=== PATIENT | male | born 1960 | race Caucasian/White ===

== ENCOUNTER → 2024-06-14 13:34 | Outpatient (REF) | payer OTHER, SELFPAY | LOC: RAD 13:34 | PROVIDERS: ATTENDING PHYSICIAN Physician Assistant Surgical | DX: M79.661 Pain in right lower leg (principal) | CPT/HCPCS: 93971 ==

== ENCOUNTER 2024-06-14 22:03 | Inpatient (IN) | payer OTHER, SELFPAY ==
[2024-06-14] VITALS (10 sets, daily range): BP systolic 136–183; BP diastolic 88–157; BMI 27.4; BMI 30.1
--- NOTE | 2024-06-14 15:07 | ED.GENMED ---
ED Provider Triage
<Brain Gillespie PA-C - Last Filed: 06/14/24 15:11>
-
Patient seen by provider in Triage?: Seen in Triage
Attestation: A medical screening examination has been initiated by a qualified medical provider. Based on the assessment performed at this time, it has been determined that an emergent medical condition may exist and the patient has been informed
that further medical evaluation and possible additional diagnostic testing may be needed.
HPI: Patient sent to the emergency department for admission due to extensive DVT to the right lower extremity. Patient with known tibial plateau fracture. Also history of factor V. Labs initiated. Patient states he 'always has chest pain' CTA of
the chest ordered for PE rule out given known DVT. patient will likely need admission for heparin drip and further evaluation.
GENERAL: Alert , in no apparent distress
EYE: No visual abnormalities.
NECK: Trachea midline
ENT: No visible abnormalities.
LUNGS: No acute respiratory distress
NEUROLOGICAL: Alert and oriented
SKIN: Skin intact. No visible changes.
MUSCULOSKELETAL: Moving extremities normally
PSYCH: Normal and appropriate interaction.
This is a medical evaluation conducted in person to initiate diagnostic evaluation and provide initial therapeutics. Please see further documentation by the treating clinician.
History of Present Illness
<Brain Gillespie PA-C - Last Filed: 06/14/24 15:11>
General
Chief Complaint: DVT/Possible Blood Clot
Time Seen by Provider: 06/14/24 16:12
<Kathy Garcia NP - Last Filed: 06/16/24 11:02>
General
Source: patient
Exam Limitations: none
Nursing documentation reviewed up to this point in time: agreed with
History of Present Illness
History of Present Illness:
63-year-old male with tibial plateau fracture on 05/17/24 from skiing accident. Has been wearing long leg brace. Three days ago noted swelling in his R foot and pain in back of his leg. Had out pt US today and he was called and told to come here for
DVT.
He has chronic chest pain, with multiple cardiac workups and his rn documentation told him 'well we can't find anything and you're not yet' so he lives with chronic chest pain, he has had no chest pains other than his typical chronic chest pain
He has some SOB going up and down steps he states due to the fact that it is hard for him to maneuver steps with his brace and crutches. No SOB at rest.
Denies fever/chills.
Past History
<Kathy Garcia, COAT AGENT - Last Filed: 06/16/24 11:02>
Past History
ED Past Medical History: None
ED Past Surgical History: None
Social History
Tobacco: Non-smoker
Personal:
Living: with family
Employment: Employed
Review of Systems
<Kathy Garcia, COAT AGENT - Last Filed: 06/16/24 11:02>
Review of Systems
Allergies reviewed?: Yes
All Other Systems: ROS reviewed and negative except as documented in HPI and ROS
Constitutional: Denies fever
Respiratory: Denies cough, hemoptysis or trouble breathing
Cardiac: Reports chest pain (Similar to his chronic chest pain); Denies diaphoresis, palpitations or syncope
ABD/GI: Denies abdominal pain
Musculoskeletal: Reports edema (swelling R foot and lower leg) and other (Wearing a brace on the right leg for a tibial plateau fracture)
Neurological: Reports no symptoms
Phy Exam
<Kathy Garcia, COAT AGENT - Last Filed: 06/16/24 11:02>
Physical Exam
Physical Exam:
GENERAL: No acute distress. A&Ox3.
CONSTITUTIONAL: Afebrile.
EYES: clear, conjunctivae normal
ENMT: moist mucus membranes
RESPIRATORY: Regular respirations, nonlabored, lungs clear.
CARDIOVASCULAR: Regular rate and rhythm, no murmurs, no rubs.
GI: Soft, nontender
MUSCULOSKELETAL: Long-leg brace on right leg. Right lower leg and foot are +1 swollen, pedal pulse 2/5, foot is warm and pink. Brisk capillary refill. Moves with ease. Well perfused.
SKIN: Warm, dry, pink
PSYCH: Normal mood and affect. Well kept, interactive and appropriate
NEUROLOGIC: Awake, alert and oriented. No focal neurological deficits
Course
<Brain Gillespie PA-C - Last Filed: 06/14/24 15:11>
Orders/Labs/Results
Orders:
Orders
06/14/24 Breakfast
Cholesterol Lowering
At Your Request: Full Participation
Does patient need a safe tray?: No
Cholesterol Lowering: Sodium, 2 Gram
06/14/24 15:10
CT Chest PE Study Urgent
Comment:
Reason For Exam: known DVT, chest pain
06/14/24 15:18
Electrocardiogram (*1) Urgent
Reason for Study: Chest Pain
EKG- Treatment ONCE
06/14/24 15:23
Basic Metabolic Panel Urgent
Complete Blood Count/With Diff Urgent
NT-proBNP Urgent
PTT Urgent
Prothrombin Time Urgent
Troponin I Urgent
06/14/24 16:25
Apixaban [Eliquis] 10 mg PO NOW STA
06/14/24 20:01
Heparin 7,900 units IV NOW STA
06/14/24 20:[address] Non Medication Order As Directed
Physician Order: PTT 6 hours after initial start of Heparin infusion
Above order entered?: Yes
06/14/24 20:15
Heparin 14912 Units/250 ml 25,000 units in 250 ml IV PER PROTOCOL
Weight to be used for heparin protocol in kilograms (kg):: 99.3
Protocol:: DVT/PE
PTT Goal Range to be used:: PTT 73 to 111 seconds
Order type:: Initial
INITIAL Infusion Dose (UNITS/KG/hr) & then follow protocol:: 18 units/kg/hr
Infusion Dose in UNITS/hr & then follow protocol (UNITS/hr):: 1,800
INFUSION RATE in mL/hr & then follow protocol (mL/hr):: 18
For DVT/PE algorithm, re-bolus for low PTT?: Yes
PTT less than or equal to 64 seconds:: Re-bolus 80 units/kg (max 10,000units). Increase by 400 units/hr
(+ 4mL/hr)
PTT 64.1 to 72.9 seconds:: Re-bolus 40 units/kg (max 5,000 units). Increase by 200 units/hr
(+ 2mL/hr)
PTT 73 to 111 seconds:: Target Range. No change in rate.
PTT 111.1 to 130.9 seconds:: Decrease rate by 200 units/hr (- 2 mL/hr)
PTT 131 to 199.9 seconds:: HOLD for 1 hr. Then decrease by 300 units/hr (- 3mL/hr)
PTT greater than or equal to 200 seconds:: HOLD for 2 hrs & Notify Provider. Then decrease by 400 units/hr
(- 4mL/hr)
Lab follow-up:: Each change, PTT q6h until 2 consecutive are therapeutic. Then
PTT daily.
06/14/24 20:27
Heparin 7,900 units IV PRN PRN
06/14/24 20:28
Heparin 4,000 units IV PRN PRN
06/14/24 20:51
Admit/Transfer Patient As Directed
Co-Sign Provider:
Level of Care: Inpatient admission
Assign to:: Telemetry
Physician / Group: facundo
Diagnosis: PE
Reason for Telemetry: Other
Other Reason for Telemetry: PE
Date to Stop Telemetry: 06/16/24
Time to Stop Telemetry: 11:00
Reason for Hospitalization: PE
DVT
Expected length of stay greater than two midnights?: Yes
ELOS- Estimated Length of Stay in days: 3
I certify the patient meets the requirements for IP care: Yes
PRN Pain Medication Management As Directed
May give lesser potent ordered pain med per pt: Yes
preference::
Protocol:: Medication orders for pain may be administered in a
manner that supports deferring to patient preference
when the pt is:
- Requesting an ordered lesser potent pain medication.
Least to most potent pain medications are defined
as: acetaminophen < NSAID < tramadol < opioids
(morphine, oxycodone, hydromorphone).
- Requesting a lesser dose of the same medication IF
ORDERED.
- Requesting a less intrusive route of administration
if both routes are prescribed by the provider (PO <
IV).
06/14/24 20:52
Code Status As Directed
Resuscitation Status: Full Code
06/14/24 22:00
Flush (0.9% Sodium Chloride) [Flush (Nss)] See Dose Instructions IV PER PROTOCOL
06/14/24 22:59
0.9% Sodium Chloride [Nss (Preservative Free)] See Protocol IV PRN PRN
Acetaminophen [Tylenol] 650 mg PO Q4HPRN PRN
FOLic ACID [Folvite] 1 mg 0.9% Sodium Chloride 50 ml [Nss] 50 ml IV DAILYPRN
Lorazepam [Ativan] 1 mg IV Q1HPRN PRN
Lorazepam [Ativan] 1 mg PO Q2HPRN PRN
Lorazepam [Ativan] 2 mg IV Q1HPRN PRN
Oxycodone/Acetaminophen [Percocet 5/325] 1 tablet PO Q4HPRN PRN
06/14/24 22:59
Case Management Consult Once
Case Management Consult: Other
Comment: Substance abuse counseling
DIETARY CONSULT Routine
Reason for Consult: Nutrition support, possible refeeding guidelines
Urine Drug Abuse Screen Routine
Date Specimen was Collected: 06/15/24
Time Specimen was Collected: 07:31
Heparin Protocol- PTT Orders As Directed
PTT per Heparin protocol: -Obtain CBC and baseline PTT - if not already collected.
-Obtain PTT 6 hours from start of infusion. Then, every 6 hours until 2 consecutive
PTT's are therapeutic. Then, PTT Daily.
-With each rate change, obtain PTT every 6 hours until 2 consecutive PTT's are
therapeutic. Then, PTT Daily.
Activity As Directed
Activity Level: As Tolerated
Bladder Scan As Directed
Follow Bladder Retention/Intermittent Cath Algorithm?: Yes
Frequency: Per Retention Algorithm
Comment: as per intermittent urinary catheter algorithm
Bladder Scan As Directed
Follow Bladder Retention/Intermittent Cath Algorithm?: Yes
PRN if no void in __ hours: 6
Frequency: Per Retention Algorithm
If Bladder Scan Result >: 400
then:: Straight cath
Intake/ Output As Directed
Frequency: Per unit guidelines
MSAS SCORE As Directed
MSAS Score 0-4: Repeat MSAS every 2 hours until 0-4 for three consecutive assessments, then every 4 hours x 48
hours.
MSAS Score 5-7: For MILD withdrawl symptoms. Repeat MSAS and RASS every 2 hours
MSAS Score 8-11: For MODERATE withdrawal symptoms. Repeat MSAS and RASS every 1 hour. Consider ICU or IMU
level of care.
MSAS Score > 11: For SEVERE withdrawal symptoms. Repeat MSAS and RASS every 1 hour. Notify provider, consider
ICU level of care.
MSAS Additional Instructions: If no improvement or no decrease in score from severe to moderate within 12
hours, consult psychiatry
MSAS Notify Provider: Notify provider if patient requires more than 10 mg of Lorazepam in eight hour period.
Notify MD As Directed
Notify physician if: PTT is greater than or equal to 200.
Straight Cath As Directed
Frequency: Per Retention Algorithm
Additional Instructions: as per intermittent urinary catheter algorithm
Straight Cath As Directed
Frequency: Per Retention Algorithm
Additional Instructions: straight cath as needed per acute urinary retention algorithm for 24 hrs
Additional Instructions: for bladder scan greater than 400 mL
Vital Signs As Directed
Frequency: Per unit guidelines
Pt Eval And Treat Routine
Activity Level: As Tolerated
06/14/24 23:23
Alcohol Urgent
B-Hydroxybutyrate Urgent
GGTP Urgent
Magnesium Urgent
Phosphorus Urgent
06/15/24 03:12
Complete Blood Count/No Diff IN AM
PTT Urgent
Comment: 6 hour Heparin PTT
06/15/24 08:00
Atorvastatin [Lipitor] 10 mg PO DAILY
FOLic ACID [Folvite] 1 mg PO DAILY
Pantoprazole [Protonix] 40 mg PO DAILY
Thiamine Injection 200 mg IV Q12
06/16/24 11:00
DC Protocol for Telemetry ONCE
06/18/24 08:00
Thiamine HCl [Vitamin B1] 100 mg PO BID
Abnormal Lab Results
06/14/24
15:23
MCH 31.8 H pg
(27.0-31.0)
Immature Gran % 0.6 H %
(0-0.5)
Monocytes % 9.6 H %
(1.7-9.3)
Eosinophils % 7.5 H %
(0-6)
Creatinine 0.5 L mg/dL
(0.7-1.3)
Glucose 102 H mg/dl
(70-99)
06/14/24 15:23
06/14/24 15:23
Vital Signs
Initial and Last Documented VS:
Initial Vital Signs
Temp Pulse Resp BP Pulse Ox
98.4 F 70 18 147/106 96
06/14/24 15:10 06/14/24 15:10 06/14/24 15:10 06/14/24 15:10 06/14/24 15:10
Last Documented Vital Signs
Temp Pulse Resp BP Pulse Ox
98.2 F 78 20 152/85 94
06/15/24 11:52 06/15/24 11:43 06/15/24 11:43 06/15/24 11:43 06/15/24 12:00
<Kathy Garcia, GUILLERMINA - Last Filed: 06/16/24 11:02>
Orders/Labs/Results
Orders:
Orders
06/14/24 Breakfast
Cholesterol Lowering
At Your Request: Full Participation
Does patient need a safe tray?: No
Cholesterol Lowering: Sodium, 2 Gram
06/14/24 15:10
CT Chest PE Study Urgent
Comment:
Reason For Exam: known DVT, chest pain
06/14/24 15:18
Electrocardiogram (*1) Urgent
Reason for Study: Chest Pain
EKG- Treatment ONCE
06/14/24 15:23
Basic Metabolic Panel Urgent
Complete Blood Count/With Diff Urgent
NT-proBNP Urgent
PTT Urgent
Prothrombin Time Urgent
Troponin I Urgent
06/14/24 16:25
Apixaban [Eliquis] 10 mg PO NOW STA
06/14/24 20:01
Heparin 7,900 units IV NOW STA
06/14/24 20:[address] Non Medication Order As Directed
Physician Order: PTT 6 hours after initial start of Heparin infusion
Above order entered?: Yes
06/14/24 20:15
Heparin 08785 Units/250 ml 25,000 units in 250 ml IV PER PROTOCOL
Weight to be used for heparin protocol in kilograms (kg):: 99.3
Protocol:: DVT/PE
PTT Goal Range to be used:: PTT 73 to 111 seconds
Order type:: Initial
INITIAL Infusion Dose (UNITS/KG/hr) & then follow protocol:: 18 units/kg/hr
Infusion Dose in UNITS/hr & then follow protocol (UNITS/hr):: 1,800
INFUSION RATE in mL/hr & then follow protocol (mL/hr):: 18
For DVT/PE algorithm, re-bolus for low PTT?: Yes
PTT less than or equal to 64 seconds:: Re-bolus 80 units/kg (max 10,000units). Increase by 400 units/hr
(+ 4mL/hr)
PTT 64.1 to 72.9 seconds:: Re-bolus 40 units/kg (max 5,000 units). Increase by 200 units/hr
(+ 2mL/hr)
PTT 73 to 111 seconds:: Target Range. No change in rate.
PTT 111.1 to 130.9 seconds:: Decrease rate by 200 units/hr (- 2 mL/hr)
PTT 131 to 199.9 seconds:: HOLD for 1 hr. Then decrease by 300 units/hr (- 3mL/hr)
PTT greater than or equal to 200 seconds:: HOLD for 2 hrs & Notify Provider. Then decrease by 400 units/hr
(- 4mL/hr)
Lab follow-up:: Each change, PTT q6h until 2 consecutive are therapeutic. Then
PTT daily.
06/14/24 20:27
Heparin 7,900 units IV PRN PRN
06/14/24 20:28
Heparin 4,000 units IV PRN PRN
06/14/24 20:51
Admit/Transfer Patient As Directed
Co-Sign Provider:
Level of Care: Inpatient admission
Assign to:: Telemetry
Physician / Group: facundo
Diagnosis: PE
Reason for Telemetry: Other
Other Reason for Telemetry: PE
Date to Stop Telemetry: 06/16/24
Time to Stop Telemetry: 11:00
Reason for Hospitalization: PE
DVT
Expected length of stay greater than two midnights?: Yes
ELOS- Estimated Length of Stay in days: 3
I certify the patient meets the requirements for IP care: Yes
PRN Pain Medication Management As Directed
May give lesser potent ordered pain med per pt: Yes
preference::
Protocol:: Medication orders for pain may be administered in a
manner that supports deferring to patient preference
when the pt is:
- Requesting an ordered lesser potent pain medication.
Least to most potent pain medications are defined
as: acetaminophen < NSAID < tramadol < opioids
(morphine, oxycodone, hydromorphone).
- Requesting a lesser dose of the same medication IF
ORDERED.
- Requesting a less intrusive route of administration
if both routes are prescribed by the provider (PO <
IV).
06/14/24 20:52
Code Status As Directed
Resuscitation Status: Full Code
06/14/24 22:00
Flush (0.9% Sodium Chloride) [Flush (Nss)] See Dose Instructions IV PER PROTOCOL
06/14/24 22:59
0.9% Sodium Chloride [Nss (Preservative Free)] See Protocol IV PRN PRN
Acetaminophen [Tylenol] 650 mg PO Q4HPRN PRN
FOLic ACID [Folvite] 1 mg 0.9% Sodium Chloride 50 ml [Nss] 50 ml IV DAILYPRN
Lorazepam [Ativan] 1 mg IV Q1HPRN PRN
Lorazepam [Ativan] 1 mg PO Q2HPRN PRN
Lorazepam [Ativan] 2 mg IV Q1HPRN PRN
Oxycodone/Acetaminophen [Percocet 5/325] 1 tablet PO Q4HPRN PRN
06/14/24 22:59
Case Management Consult Once
Case Management Consult: Other
Comment: Substance abuse counseling
DIETARY CONSULT Routine
Reason for Consult: Nutrition support, possible refeeding guidelines
Urine Drug Abuse Screen Routine
Date Specimen was Collected: 06/15/24
Time Specimen was Collected: 07:31
Heparin Protocol- PTT Orders As Directed
PTT per Heparin protocol: -Obtain CBC and baseline PTT - if not already collected.
-Obtain PTT 6 hours from start of infusion. Then, every 6 hours until 2 consecutive
PTT's are therapeutic. Then, PTT Daily.
-With each rate change, obtain PTT every 6 hours until 2 consecutive PTT's are
therapeutic. Then, PTT Daily.
Activity As Directed
Activity Level: As Tolerated
Bladder Scan As Directed
Follow Bladder Retention/Intermittent Cath Algorithm?: Yes
Frequency: Per Retention Algorithm
Comment: as per intermittent urinary catheter algorithm
Bladder Scan As Directed
Follow Bladder Retention/Intermittent Cath Algorithm?: Yes
PRN if no void in __ hours: 6
Frequency: Per Retention Algorithm
If Bladder Scan Result >: 400
then:: Straight cath
Intake/ Output As Directed
Frequency: Per unit guidelines
MSAS SCORE As Directed
MSAS Score 0-4: Repeat MSAS every 2 hours until 0-4 for three consecutive assessments, then every 4 hours x 48
hours.
MSAS Score 5-7: For MILD withdrawl symptoms. Repeat MSAS and RASS every 2 hours
MSAS Score 8-11: For MODERATE withdrawal symptoms. Repeat MSAS and RASS every 1 hour. Consider ICU or IMU
level of care.
MSAS Score > 11: For SEVERE withdrawal symptoms. Repeat MSAS and RASS every 1 hour. Notify provider, consider
ICU level of care.
MSAS Additional Instructions: If no improvement or no decrease in score from severe to moderate within 12
hours, consult psychiatry
MSAS Notify Provider: Notify provider if patient requires more than 10 mg of Lorazepam in eight hour period.
Notify MD As Directed
Notify physician if: PTT is greater than or equal to 200.
Straight Cath As Directed
Frequency: Per Retention Algorithm
Additional Instructions: as per intermittent urinary catheter algorithm
Straight Cath As Directed
Frequency: Per Retention Algorithm
Additional Instructions: straight cath as needed per acute urinary retention algorithm for 24 hrs
Additional Instructions: for bladder scan greater than 400 mL
Vital Signs As Directed
Frequency: Per unit guidelines
Pt Eval And Treat Routine
Activity Level: As Tolerated
06/14/24 23:23
Alcohol Urgent
B-Hydroxybutyrate Urgent
GGTP Urgent
Magnesium Urgent
Phosphorus Urgent
06/15/24 03:12
Complete Blood Count/No Diff IN AM
PTT Urgent
Comment: 6 hour Heparin PTT
06/15/24 08:00
Atorvastatin [Lipitor] 10 mg PO DAILY
FOLic ACID [Folvite] 1 mg PO DAILY
Pantoprazole [Protonix] 40 mg PO DAILY
Thiamine Injection 200 mg IV Q12
06/16/24 11:00
DC Protocol for Telemetry ONCE
06/18/24 08:00
Thiamine HCl [Vitamin B1] 100 mg PO BID
Abnormal Lab Results
06/14/24
15:23
MCH 31.8 H pg
(27.0-31.0)
Immature Gran % 0.6 H %
(0-0.5)
Monocytes % 9.6 H %
(1.7-9.3)
Eosinophils % 7.5 H %
(0-6)
Creatinine 0.5 L mg/dL
(0.7-1.3)
Glucose 102 H mg/dl
(70-99)
06/14/24 15:23
06/14/24 15:23
Vital Signs
Initial and Last Documented VS:
Initial Vital Signs
Temp Pulse Resp BP Pulse Ox
98.4 F 70 18 147/106 96
06/14/24 15:10 06/14/24 15:10 06/14/24 15:10 06/14/24 15:10 06/14/24 15:10
Last Documented Vital Signs
Temp Pulse Resp BP Pulse Ox
98.2 F 78 20 152/85 94
06/15/24 11:52 06/15/24 11:43 06/15/24 11:43 06/15/24 11:43 06/15/24 12:00
<Eugenio Agrawal, DO - Last Filed: 06/14/24 20:08>
Orders/Labs/Results
Orders:
Orders
06/14/24 Breakfast
Cholesterol Lowering
At Your Request: Full Participation
Does patient need a safe tray?: No
Cholesterol Lowering: Sodium, 2 Gram
06/14/24 15:10
CT Chest PE Study Urgent
Comment:
Reason For Exam: known DVT, chest pain
06/14/24 15:18
Electrocardiogram (*1) Urgent
Reason for Study: Chest Pain
EKG- Treatment ONCE
06/14/24 15:23
Basic Metabolic Panel Urgent
Complete Blood Count/With Diff Urgent
NT-proBNP Urgent
PTT Urgent
Prothrombin Time Urgent
Troponin I Urgent
06/14/24 16:25
Apixaban [Eliquis] 10 mg PO NOW STA
06/14/24 20:01
Heparin 7,900 units IV NOW STA
06/14/24 20:[address] Non Medication Order As Directed
Physician Order: PTT 6 hours after initial start of Heparin infusion
Above order entered?: Yes
06/14/24 20:15
Heparin 84358 Units/250 ml 25,000 units in 250 ml IV PER PROTOCOL
Weight to be used for heparin protocol in kilograms (kg):: 99.3
Protocol:: DVT/PE
PTT Goal Range to be used:: PTT 73 to 111 seconds
Order type:: Initial
INITIAL Infusion Dose (UNITS/KG/hr) & then follow protocol:: 18 units/kg/hr
Infusion Dose in UNITS/hr & then follow protocol (UNITS/hr):: 1,800
INFUSION RATE in mL/hr & then follow protocol (mL/hr):: 18
For DVT/PE algorithm, re-bolus for low PTT?: Yes
PTT less than or equal to 64 seconds:: Re-bolus 80 units/kg (max 10,000units). Increase by 400 units/hr
(+ 4mL/hr)
PTT 64.1 to 72.9 seconds:: Re-bolus 40 units/kg (max 5,000 units). Increase by 200 units/hr
(+ 2mL/hr)
PTT 73 to 111 seconds:: Target Range. No change in rate.
PTT 111.1 to 130.9 seconds:: Decrease rate by 200 units/hr (- 2 mL/hr)
PTT 131 to 199.9 seconds:: HOLD for 1 hr. Then decrease by 300 units/hr (- 3mL/hr)
PTT greater than or equal to 200 seconds:: HOLD for 2 hrs & Notify Provider. Then decrease by 400 units/hr
(- 4mL/hr)
Lab follow-up:: Each change, PTT q6h until 2 consecutive are therapeutic. Then
PTT daily.
06/14/24 20:27
Heparin 7,900 units IV PRN PRN
06/14/24 20:28
Heparin 4,000 units IV PRN PRN
06/14/24 20:51
Admit/Transfer Patient As Directed
Co-Sign Provider:
Level of Care: Inpatient admission
Assign to:: Telemetry
Physician / Group: facundo
Diagnosis: PE
Reason for Telemetry: Other
Other Reason for Telemetry: PE
Date to Stop Telemetry: 06/16/24
Time to Stop Telemetry: 11:00
Reason for Hospitalization: PE
DVT
Expected length of stay greater than two midnights?: Yes
ELOS- Estimated Length of Stay in days: 3
I certify the patient meets the requirements for IP care: Yes
PRN Pain Medication Management As Directed
May give lesser potent ordered pain med per pt: Yes
preference::
Protocol:: Medication orders for pain may be administered in a
manner that supports deferring to patient preference
when the pt is:
- Requesting an ordered lesser potent pain medication.
Least to most potent pain medications are defined
as: acetaminophen < NSAID < tramadol < opioids
(morphine, oxycodone, hydromorphone).
- Requesting a lesser dose of the same medication IF
ORDERED.
- Requesting a less intrusive route of administration
if both routes are prescribed by the provider (PO <
IV).
06/14/24 20:52
Code Status As Directed
Resuscitation Status: Full Code
06/14/24 22:00
Flush (0.9% Sodium Chloride) [Flush (Nss)] See Dose Instructions IV PER PROTOCOL
06/14/24 22:59
0.9% Sodium Chloride [Nss (Preservative Free)] See Protocol IV PRN PRN
Acetaminophen [Tylenol] 650 mg PO Q4HPRN PRN
FOLic ACID [Folvite] 1 mg 0.9% Sodium Chloride 50 ml [Nss] 50 ml IV DAILYPRN
Lorazepam [Ativan] 1 mg IV Q1HPRN PRN
Lorazepam [Ativan] 1 mg PO Q2HPRN PRN
Lorazepam [Ativan] 2 mg IV Q1HPRN PRN
Oxycodone/Acetaminophen [Percocet 5/325] 1 tablet PO Q4HPRN PRN
06/14/24 22:59
Case Management Consult Once
Case Management Consult: Other
Comment: Substance abuse counseling
DIETARY CONSULT Routine
Reason for Consult: Nutrition support, possible refeeding guidelines
Urine Drug Abuse Screen Routine
Date Specimen was Collected: 06/15/24
Time Specimen was Collected: 07:31
Heparin Protocol- PTT Orders As Directed
PTT per Heparin protocol: -Obtain CBC and baseline PTT - if not already collected.
-Obtain PTT 6 hours from start of infusion. Then, every 6 hours until 2 consecutive
PTT's are therapeutic. Then, PTT Daily.
-With each rate change, obtain PTT every 6 hours until 2 consecutive PTT's are
therapeutic. Then, PTT Daily.
Activity As Directed
Activity Level: As Tolerated
Bladder Scan As Directed
Follow Bladder Retention/Intermittent Cath Algorithm?: Yes
Frequency: Per Retention Algorithm
Comment: as per intermittent urinary catheter algorithm
Bladder Scan As Directed
Follow Bladder Retention/Intermittent Cath Algorithm?: Yes
PRN if no void in __ hours: 6
Frequency: Per Retention Algorithm
If Bladder Scan Result >: 400
then:: Straight cath
Intake/ Output As Directed
Frequency: Per unit guidelines
MSAS SCORE As Directed
MSAS Score 0-4: Repeat MSAS every 2 hours until 0-4 for three consecutive assessments, then every 4 hours x 48
hours.
MSAS Score 5-7: For MILD withdrawl symptoms. Repeat MSAS and RASS every 2 hours
MSAS Score 8-11: For MODERATE withdrawal symptoms. Repeat MSAS and RASS every 1 hour. Consider ICU or IMU
level of care.
MSAS Score > 11: For SEVERE withdrawal symptoms. Repeat MSAS and RASS every 1 hour. Notify provider, consider
ICU level of care.
MSAS Additional Instructions: If no improvement or no decrease in score from severe to moderate within 12
hours, consult psychiatry
MSAS Notify Provider: Notify provider if patient requires more than 10 mg of Lorazepam in eight hour period.
Notify MD As Directed
Notify physician if: PTT is greater than or equal to 200.
Straight Cath As Directed
Frequency: Per Retention Algorithm
Additional Instructions: as per intermittent urinary catheter algorithm
Straight Cath As Directed
Frequency: Per Retention Algorithm
Additional Instructions: straight cath as needed per acute urinary retention algorithm for 24 hrs
Additional Instructions: for bladder scan greater than 400 mL
Vital Signs As Directed
Frequency: Per unit guidelines
Pt Eval And Treat Routine
Activity Level: As Tolerated
06/14/24 23:23
Alcohol Urgent
B-Hydroxybutyrate Urgent
GGTP Urgent
Magnesium Urgent
Phosphorus Urgent
06/15/24 03:12
Complete Blood Count/No Diff IN AM
PTT Urgent
Comment: 6 hour Heparin PTT
06/15/24 08:00
Atorvastatin [Lipitor] 10 mg PO DAILY
FOLic ACID [Folvite] 1 mg PO DAILY
Pantoprazole [Protonix] 40 mg PO DAILY
Thiamine Injection 200 mg IV Q12
06/16/24 11:00
DC Protocol for Telemetry ONCE
06/18/24 08:00
Thiamine HCl [Vitamin B1] 100 mg PO BID
Abnormal Lab Results
06/14/24
15:23
MCH 31.8 H pg
(27.0-31.0)
Immature Gran % 0.6 H %
(0-0.5)
Monocytes % 9.6 H %
(1.7-9.3)
Eosinophils % 7.5 H %
(0-6)
Creatinine 0.5 L mg/dL
(0.7-1.3)
Glucose 102 H mg/dl
(70-99)
06/14/24 15:23
06/14/24 15:23
Vital Signs
Initial and Last Documented VS:
Initial Vital Signs
Temp Pulse Resp BP Pulse Ox
98.4 F 70 18 147/106 96
06/14/24 15:10 06/14/24 15:10 06/14/24 15:10 06/14/24 15:10 06/14/24 15:10
Last Documented Vital Signs
Temp Pulse Resp BP Pulse Ox
98.2 F 78 20 152/85 94
06/15/24 11:52 06/15/24 11:43 06/15/24 11:43 06/15/24 11:43 06/15/24 12:00
<Rizwana Lacey NP - Last Filed: 06/14/24 20:12>
Orders/Labs/Results
Orders:
Orders
06/14/24 Breakfast
Cholesterol Lowering
At Your Request: Full Participation
Does patient need a safe tray?: No
Cholesterol Lowering: Sodium, 2 Gram
06/14/24 15:10
CT Chest PE Study Urgent
Comment:
Reason For Exam: known DVT, chest pain
06/14/24 15:18
Electrocardiogram (*1) Urgent
Reason for Study: Chest Pain
EKG- Treatment ONCE
06/14/24 15:23
Basic Metabolic Panel Urgent
Complete Blood Count/With Diff Urgent
NT-proBNP Urgent
PTT Urgent
Prothrombin Time Urgent
Troponin I Urgent
06/14/24 16:25
Apixaban [Eliquis] 10 mg PO NOW STA
06/14/24 20:01
Heparin 7,900 units IV NOW STA
06/14/24 20:[address] Non Medication Order As Directed
Physician Order: PTT 6 hours after initial start of Heparin infusion
Above order entered?: Yes
06/14/24 20:15
Heparin 09714 Units/250 ml 25,000 units in 250 ml IV PER PROTOCOL
Weight to be used for heparin protocol in kilograms (kg):: 99.3
Protocol:: DVT/PE
PTT Goal Range to be used:: PTT 73 to 111 seconds
Order type:: Initial
INITIAL Infusion Dose (UNITS/KG/hr) & then follow protocol:: 18 units/kg/hr
Infusion Dose in UNITS/hr & then follow protocol (UNITS/hr):: 1,800
INFUSION RATE in mL/hr & then follow protocol (mL/hr):: 18
For DVT/PE algorithm, re-bolus for low PTT?: Yes
PTT less than or equal to 64 seconds:: Re-bolus 80 units/kg (max 10,000units). Increase by 400 units/hr
(+ 4mL/hr)
PTT 64.1 to 72.9 seconds:: Re-bolus 40 units/kg (max 5,000 units). Increase by 200 units/hr
(+ 2mL/hr)
PTT 73 to 111 seconds:: Target Range. No change in rate.
PTT 111.1 to 130.9 seconds:: Decrease rate by 200 units/hr (- 2 mL/hr)
PTT 131 to 199.9 seconds:: HOLD for 1 hr. Then decrease by 300 units/hr (- 3mL/hr)
PTT greater than or equal to 200 seconds:: HOLD for 2 hrs & Notify Provider. Then decrease by 400 units/hr
(- 4mL/hr)
Lab follow-up:: Each change, PTT q6h until 2 consecutive are therapeutic. Then
PTT daily.
06/14/24 20:27
Heparin 7,900 units IV PRN PRN
06/14/24 20:28
Heparin 4,000 units IV PRN PRN
06/14/24 20:51
Admit/Transfer Patient As Directed
Co-Sign Provider:
Level of Care: Inpatient admission
Assign to:: Telemetry
Physician / Group: facundo
Diagnosis: PE
Reason for Telemetry: Other
Other Reason for Telemetry: PE
Date to Stop Telemetry: 06/16/24
Time to Stop Telemetry: 11:00
Reason for Hospitalization: PE
DVT
Expected length of stay greater than two midnights?: Yes
ELOS- Estimated Length of Stay in days: 3
I certify the patient meets the requirements for IP care: Yes
PRN Pain Medication Management As Directed
May give lesser potent ordered pain med per pt: Yes
preference::
Protocol:: Medication orders for pain may be administered in a
manner that supports deferring to patient preference
when the pt is:
- Requesting an ordered lesser potent pain medication.
Least to most potent pain medications are defined
as: acetaminophen < NSAID < tramadol < opioids
(morphine, oxycodone, hydromorphone).
- Requesting a lesser dose of the same medication IF
ORDERED.
- Requesting a less intrusive route of administration
if both routes are prescribed by the provider (PO <
IV).
06/14/24 20:52
Code Status As Directed
Resuscitation Status: Full Code
06/14/24 22:00
Flush (0.9% Sodium Chloride) [Flush (Nss)] See Dose Instructions IV PER PROTOCOL
06/14/24 22:59
0.9% Sodium Chloride [Nss (Preservative Free)] See Protocol IV PRN PRN
Acetaminophen [Tylenol] 650 mg PO Q4HPRN PRN
FOLic ACID [Folvite] 1 mg 0.9% Sodium Chloride 50 ml [Nss] 50 ml IV DAILYPRN
Lorazepam [Ativan] 1 mg IV Q1HPRN PRN
Lorazepam [Ativan] 1 mg PO Q2HPRN PRN
Lorazepam [Ativan] 2 mg IV Q1HPRN PRN
Oxycodone/Acetaminophen [Percocet 5/325] 1 tablet PO Q4HPRN PRN
06/14/24 22:59
Case Management Consult Once
Case Management Consult: Other
Comment: Substance abuse counseling
DIETARY CONSULT Routine
Reason for Consult: Nutrition support, possible refeeding guidelines
Urine Drug Abuse Screen Routine
Date Specimen was Collected: 06/15/24
Time Specimen was Collected: 07:31
Heparin Protocol- PTT Orders As Directed
PTT per Heparin protocol: -Obtain CBC and baseline PTT - if not already collected.
-Obtain PTT 6 hours from start of infusion. Then, every 6 hours until 2 consecutive
PTT's are therapeutic. Then, PTT Daily.
-With each rate change, obtain PTT every 6 hours until 2 consecutive PTT's are
therapeutic. Then, PTT Daily.
Activity As Directed
Activity Level: As Tolerated
Bladder Scan As Directed
Follow Bladder Retention/Intermittent Cath Algorithm?: Yes
Frequency: Per Retention Algorithm
Comment: as per intermittent urinary catheter algorithm
Bladder Scan As Directed
Follow Bladder Retention/Intermittent Cath Algorithm?: Yes
PRN if no void in __ hours: 6
Frequency: Per Retention Algorithm
If Bladder Scan Result >: 400
then:: Straight cath
Intake/ Output As Directed
Frequency: Per unit guidelines
MSAS SCORE As Directed
MSAS Score 0-4: Repeat MSAS every 2 hours until 0-4 for three consecutive assessments, then every 4 hours x 48
hours.
MSAS Score 5-7: For MILD withdrawl symptoms. Repeat MSAS and RASS every 2 hours
MSAS Score 8-11: For MODERATE withdrawal symptoms. Repeat MSAS and RASS every 1 hour. Consider ICU or IMU
level of care.
MSAS Score > 11: For SEVERE withdrawal symptoms. Repeat MSAS and RASS every 1 hour. Notify provider, consider
ICU level of care.
MSAS Additional Instructions: If no improvement or no decrease in score from severe to moderate within 12
hours, consult psychiatry
MSAS Notify Provider: Notify provider if patient requires more than 10 mg of Lorazepam in eight hour period.
Notify MD As Directed
Notify physician if: PTT is greater than or equal to 200.
Straight Cath As Directed
Frequency: Per Retention Algorithm
Additional Instructions: as per intermittent urinary catheter algorithm
Straight Cath As Directed
Frequency: Per Retention Algorithm
Additional Instructions: straight cath as needed per acute urinary retention algorithm for 24 hrs
Additional Instructions: for bladder scan greater than 400 mL
Vital Signs As Directed
Frequency: Per unit guidelines
Pt Eval And Treat Routine
Activity Level: As Tolerated
06/14/24 23:23
Alcohol Urgent
B-Hydroxybutyrate Urgent
GGTP Urgent
Magnesium Urgent
Phosphorus Urgent
06/15/24 03:12
Complete Blood Count/No Diff IN AM
PTT Urgent
Comment: 6 hour Heparin PTT
06/15/24 08:00
Atorvastatin [Lipitor] 10 mg PO DAILY
FOLic ACID [Folvite] 1 mg PO DAILY
Pantoprazole [Protonix] 40 mg PO DAILY
Thiamine Injection 200 mg IV Q12
06/16/24 11:00
DC Protocol for Telemetry ONCE
06/18/24 08:00
Thiamine HCl [Vitamin B1] 100 mg PO BID
Abnormal Lab Results
06/14/24
15:23
MCH 31.8 H pg
(27.0-31.0)
Immature Gran % 0.6 H %
(0-0.5)
Monocytes % 9.6 H %
(1.7-9.3)
Eosinophils % 7.5 H %
(0-6)
Creatinine 0.5 L mg/dL
(0.7-1.3)
Glucose 102 H mg/dl
(70-99)
06/14/24 15:23
06/14/24 15:23
Vital Signs
Initial and Last Documented VS:
Initial Vital Signs
Temp Pulse Resp BP Pulse Ox
98.4 F 70 18 147/106 96
06/14/24 15:10 06/14/24 15:10 06/14/24 15:10 06/14/24 15:10 06/14/24 15:10
Last Documented Vital Signs
Temp Pulse Resp BP Pulse Ox
98.2 F 78 20 152/85 94
06/15/24 11:52 06/15/24 11:43 06/15/24 11:43 06/15/24 11:43 06/15/24 12:00
<Kathy Garcia [employer]AT AGENT - Last Filed: 06/16/24 11:02>
MDM/Problems Addressed
Differential Diagnosis Includes:
DVT, PE
MDM/Problems Addressed:
63-year-old male with tibial plateau fracture on 05/17/24 from skiing accident. Has been wearing long leg brace. Three days ago noted swelling in his R foot and pain in back of his leg. Had out pt US today and he was called and told to come here for
DVT.
He has chronic chest pain, with multiple cardiac workups and his rn documentation told him 'well we can't find anything and you're not yet' so he lives with chronic chest pain, he has had no chest pains other than his typical chronic chest pain
He has some SOB going up and down steps he states due to the fact that it is hard for him to maneuver steps with his brace and crutches. No SOB at rest.
Denies fever/chills.
Out pt US report: FINDINGS: The right common femoral vein is patent and compressible with normal flow. There is intraluminal echogenicity in the superficial femoral vein, popliteal vein, peroneal vein and posterior tibial vein. This is occlusive in
the popliteal and peroneal veins.
IMPRESSION: Extensive DVT of the right leg excluding the right groin. See above
CBC normal
CMP Normal
Troponin WNL
BNP normal
Chest CT PE study: Pending
Pharmacist in and explained side effects, possible complications of Eliquis, when to seek medical care immediately, all questions answered
7:15 p.m.
Case discussed with Rizwana Lacey NP who will assume care from this point.
<Kathy Garcia NP - Last Filed: 06/16/24 11:02>
*Critical Care Note
Total Time (30-74mins, 75-104mins- exclusive of procedures): Not Applicable
<Rizwana Lacey NP - Last Filed: 06/14/24 20:12>
Update Note
Update Note:
Chest CT report reviewed. Bilateral PE's, R>L. Discussed results with Dr. Escobar who also reviewed CT, US report, met with patient. Recommend admission with IV heparin. Orders placed. He remains awake and alert, in no distsress. Will admit
to hospitalist service.
ED Attending Note
<Brain Gillespie PA-C - Last Filed: 06/14/24 15:11>
-
Portions of this chart may have been created with voice recognition software.� Occasional wrong word or��sound alike� substitutions may have occurred due to the inherent limitations of voice recognition software.
<Eugenio Agrawal DO - Last Filed: 06/14/24 20:08>
ED Attending Note
Patient seen and examined by attending physician: Yes
ED Attending Note:
I have reviewed and agree with history and treatment plan by Becca garcia and Rizwana Lacey. My exam revealed 63-year-old male hemodynamically stable, complains of intermittent chest pain. CT chest consistent with bilateral PE. Patient did have 1
dose of Eliquis, but will start on heparin due to bilateral PE and extensive DVT. Admit to hospitalist
Discharge Plan
Departure
Patient Disposition: Admit
Date of Disposition: 06/14/24
Time of Disposition: 20:08
Presentation/result/management discussed w/ accepting MD/DO: Hospitalist
Condition: Fair
Discharge Problem:
Bilateral pulmonary embolism, DVT (deep venous thrombosis)
Interventions
Interventions:
*Risk Screen - Suicide Last Done: 06/14/24 15:10
*General Assessment Last Done: 06/14/24 15:10
*Neglect/Abuse Screening Last Done: 06/14/24 15:10
ED- Fall Risk Assessment Last Done: 06/14/24 16:24
*ED COVID-19 Vaccine History Last Done: 06/14/24 16:24
ED- Cardiac Assessment Last Done: 06/14/24 16:29
ED- Pulmonary Assessment Last Done: 06/14/24 16:29
ED-Peripheral Vascular Assessment Last Done: 06/14/24 16:35
ED-Skin Assessment Last Done: 06/14/24 16:29
[2024-06-14 15:41] LABS: % Basophils 0.8 % (0-2); % Eosinophils 7.5 % (0-6); % Immature Granulocytes 0.6 % (0-0.5); % Lymphocytes 29.9 % (20.5-51.1); % Monocytes 9.6 % (1.7-9.3); % Neutrophils 51.6 % (42.2-75.2); Absolute Basophils 0.1 10^3/uL (0-0.2); Absolute Eosinophils 0.5 10^3/uL (0-0.7); Absolute Lymphocytes 1.9 10^3/uL (1.2-3.4); Absolute Monocytes 0.6 10^3/uL (0.1-0.6); Absolute Neutrophils 3.3 10^3/uL (1.4-6.5); Hematocrit 46.9 % (39.0-52.0); Hemoglobin 16.2 g/dL (13.0-18.0); Mean Corp Hgb Conc. 34.5 g/dL (33.0-37.0); Mean Corpuscular Hgb 31.8 pg (27.0-31.0); Mean Platelet Volume 9.1 fL (7.4-10.4); Nucleated Red Blood Cells % 0 % (-); Platelet Count 206 10^3/uL (130-400); Red Cell Dist. Width 13.2 % (11.5-14.5); White Blood Cell Count 6.4 10^3/uL (4.8-10.8)
[2024-06-14 15:50] LABS: INR 0.96; PT 13.3 Sec (11.4-14.6)
[2024-06-14 15:51] LABS: APTT 29.1 Sec (23.4-35.0)
[2024-06-14 15:56] LABS: Blood Urea Nitrogen 13 mg/dl (9-20); Calcium 8.8 mg/dl (8.4-10.2); Carbon Dioxide 25 mmol/L (22-30); Chloride 102 mmol/L (98-107); Glucose 102 mg/dl (70-99); Potassium 4.5 mmol/L (3.5-5.1); Sodium 138 mmol/L (135-145); eGFR > 60.00
[2024-06-14 16:07] LABS: NT-proBNP 20.6 pg/ml; Troponin I < 0.012 ng/ml
[2024-06-14] MEDS: ELIQUIS 10 MG PO (16:32)
--- NOTE | 2024-06-14 20:34 | HPS.HSE ---
Addendum entered and electronically signed by Amador Damico DO 06/14/24 22:31:
Patient seen and examined independently. Agree with findings and plan as set forth by DILLON Zaragoza.
Patient is a 63y M with PMH significant for recent R tibial plateau fracture who presents to ED with swelling of the RLE. Patient states that he fractured his R tibial plateau about 4 weeks ago during a skiing accident. Also significant lateral
meniscus / ligament injury. Has been non-weight bearing and using crutches - fairly sedentary since that time. Today patient noted new swelling in the R foot specifically. He was seen by Ortho who ordered an outpatient US. This was positive for
extensive RLE DVT and patient was referred to the ED for evaluation. In the ED, CTA was done showing bilateral pulmonary emboli without RV strain. Patient denies any chest pain or dyspnea.
Patient denies any personal history of DVT / PE. He does note family history of blood clots.
Ass:
RLE DVT
Bilateral Pulmonary Emboli
Right Tibial Plateau Fracture
Plan:
Admit for further evaluation and treatment.
IV heparin x 24 hours then transition to OAC prior to discharge.
Check Echo for completeness.
Would likely benefit from outpatient Hematology evaluation given family history - though current episode is clearly provoked.
Remain NWB to RLE.
PT / OT evals.
Original Note:
Family Physician
-
Family Physician: Tian Almaguer
Chief Complaint
-
Right lower extremity swelling
History of Present Illness
63-year-old with no significant past medical history presented to us with right lower extremity swelling for 1 week . 4 weeks ago he had a tib-fib fracture while he was skating. He has been using crutches for 4-weeks.he was noted to have right
lower extremities edema for 1 week . He was sent here for duplex, which showed extensive DVT of the right leg excluding the right groin. Patient was asked to come to the ER. Patient denied any headache, dizzy or syncope. Patient denied fever,
chills, chest pain, short of breath. Patient denied abdominal pain, nausea, vomiting, diarrhea. Patient denied dysuria,hematuria.
Chest CT with impression of pulmonary embolism. Patient was initiated on heparin drip admitting for further management.
he drinks 2 glasses of wine,as well as alcohol during the day time. last drink was last night.
Medical History
Past Medical History
Past Medical History: Reports Other
Additional Past Medical History:
Colon polyp palpitation
Acid reflux
Past Surgical History: Reports None and Other
Social History
Tobacco: Non-smoker
Alcohol: Daily
Drug: None
Family History
Family History: Other (mom and maternal aunt with DVT and PE)
Allergies / Home Medications
Allergies reflects when Allergies were last updated in [facility].
Home Medications with original date entered in [facility]
Allergy/Medication List:
Allergies
Allergy/AdvReac Type Severity Reaction Status Date / Time
No Known Allergies Allergy Unverified 06/14/24 15:09
Home Medications
apixaban 5 mg tablet (Eliquis) 5 mg PO BID #70 tabs 06/14/24
atorvastatin 10 mg tablet 10 mg PO DAILY 06/14/24
ibuprofen 200 mg tablet 600 mg PO DAILYPRN PRN mild pain 06/14/24
omeprazole 40 mg capsule,delayed release 40 mg PO DAILY 06/14/24
oxycodone-acetaminophen 5 mg-325 mg tablet 1 tab PO Q4HPRN PRN moderate pain 06/14/24
Review of Systems
-
Constitutional: Reports No Symptoms
EENT: Reports No Symptoms
Respiratory: Reports No Symptoms
Cardiac: Reports No Symptoms
Abdomen/GI: Reports No Symptoms
: Reports No Symptoms
Musculoskeletal: Reports Other (Right lower extremity swelling)
Skin: Reports No Symptoms
Neurological: Reports No Symptoms
Endocrine: Reports No Symptoms
Hematologic/Lymphatic: Reports No Symptoms
Psych: Reports No Symptoms
Physical Exam
Vital Signs
Vital Signs
Temp Pulse Resp BP Pulse Ox
98.4 F 74 15 157/88 93
06/14/24 15:10 06/14/24 19:47 06/14/24 19:45 06/14/24 19:47 06/14/24 19:47
Physical Exam
General: Well Developed, Well Nourished and No Apparent Distress
HEENT: NormoCephalic, Moist mucous membranes and Atraumatic
Respiratory: Clear
Cardiac: S1/S2 and Regular Rhythm; No Murmur or Rub
GI: Soft, Non Tender, Non Distended and Normal Bowel Sounds; No Organomegaly
Rectal: Deferred by Provider
Musculoskeletal: No Clubbing, No Cyanosis and Edema, Right Lower Extremity
Skin: No Rash
Neuro: AO x 3 and Nonfocal/grossly intact
Psych: Calm
Laboratory Results
-
06/14/24 15:23
06/14/24 15:23
Laboratory Results
PT 13.3 Sec (11.4-14.6) 06/14/24 15:23
INR 0.96 06/14/24 15:23
APTT 29.1 Sec (23.4-35.0) 06/14/24 15:23
Troponin I < 0.012 ng/ml 06/14/24 15:23
Data Reviewed
-
Diagnostic Radiology: Report Reviewed by me
CT Scan: Report Reviewed by me
Lab Data: Labs Reviewed by me
Impression/Plan
-
# Bilateral PE
# Right lower extremities DVT
-CT with the impression of Examination is positive for pulmonary embolism, greater on the right, including involvement of the distal right main pulmonary artery.No evidence for elevated right heart pressure.Linear densities within both lungs, likely
linear atelectasis. No evidence for a focal area of pulmonary infarction. There is no significant pleural effusion bilaterally.
-Heparin drip
# Hyperlipidemia
-atorvastatin continued
# GERD
PPI continued
# Recent tib-fib fracture
-Oxycodone continued
-follow Dr. Anders as outpatient.
#CODE STATUS
-Full code
[2024-06-14] MEDS: HEPARIN 7900 UNITS IV (20:49)
[2024-06-14] MEDS: HEPARIN 25000 UNITS/250 ML IV (20:53)
[2024-06-15] VITALS: BP 129/94
[2024-06-15 00:35] LABS: GGTP 18 U/L (15-73); Phosphorus 3.2 mg/dl (2.5-4.5)
[2024-06-15 00:42] LABS: B-Hydroxybutyrate 0.08 mmol/L (0.02-0.27)
[2024-06-15 03:11] VITALS: BP 140/91
[2024-06-15 03:40] LABS: Hematocrit 40.8 % (39.0-52.0); Hemoglobin 14.2 g/dL (13.0-18.0); Mean Corp Hgb Conc. 34.8 g/dL (33.0-37.0); Mean Corpuscular Hgb 31.9 pg (27.0-31.0); Mean Corpuscular Volume 91.7 fL (80.0-94.0); Mean Platelet Volume 9.2 fL (7.4-10.4); Platelet Count 183 10^3/uL (130-400); Red Blood Cell Count 4.45 10^6/uL (4.70-6.10); Red Cell Dist. Width 13.2 % (11.5-14.5); White Blood Cell Count 8.2 10^3/uL (4.8-10.8)
[2024-06-15 04:36] LABS: APTT 193.1 Sec (23.4-35.0)
[2024-06-15 07:54] VITALS: BP 135/91
[2024-06-15] MEDS: PROTONIX 40 MG PO (07:57)
[2024-06-15] MEDS: THIAMINE INJECTION 200 MG IV (07:57)
[2024-06-15] MEDS: LIPITOR 10 MG PO (07:57)
[2024-06-15] MEDS: FOLVITE 1 MG PO (07:57)
[2024-06-15 08:00] VITALS: BP 137/89
[2024-06-15 08:16] LABS: Amphetamines Negative (Negative); Barbiturates Negative (Negative); Benzodiazepines Negative (Negative); Buprenorphine Negative (Negative); Cocaine Negative (Negative); Marijuana Negative (Negative); Methadone Negative (Negative); Methamphetamines Negative (Negative); Opiates Negative (Negative); Phencyclidine Negative (Negative); Tricyclic Antidepressants Negative (Negative)
--- NOTE | 2024-06-15 09:54 | W.PN.HOSP.TC ---
Today's Communication/Plan
-
Discharge today
Assessment / Plan
Assessment / Plan
HPI: 63y M with PMH significant for recent R tibial plateau fracture who presents to ED with swelling of the RLE. Patient states that he fractured his R tibial plateau about 4 weeks ago during a skiing accident. Also significant lateral
meniscus / ligament injury. Has been non-weight bearing and using crutches - fairly sedentary since that time. Today patient noted new swelling in the R foot specifically. He was seen by Ortho who ordered an outpatient US. This was positive for
extensive RLE DVT and patient was referred to the ED for evaluation. In the ED, CTA was done showing bilateral pulmonary emboli without RV strain. Patient denies any chest pain or dyspnea.
Patient denies any personal history of DVT / PE. He does note family history of blood clots.
# Acute bilateral PE
# Acute right lower extremities DVT
-CT with the impression of Examination is positive for pulmonary embolism, greater on the right, including involvement of the distal right main pulmonary artery.No evidence for elevated right heart pressure.Linear densities within both lungs, likely
linear atelectasis. No evidence for a focal area of pulmonary infarction. There is no significant pleural effusion bilaterally.
-Currently on IV heparin drip, transition to therapeutic Lovenox
-Patient is not hypoxic, denies chest pain or shortness of breath. Echo negative for right heart strain
�Medically stable for discharge on Eliquis 10 mg twice a day for 7 days, then 5 mg twice a day -recommend anticoagulation for 3 months
-This is patient's first DVT/PE, and it is provoked, would hold off on outpatient hypercoagulable workup
-Follow-up with PCP in 1 week
# Hyperlipidemia
-atorvastatin continued
# GERD
PPI continued
# Recent right tib-fib fracture
-Outpatient PT, nonweightbearing right lower extremity, follow-up with usual orthopedic surgeon
Physical Exam
General: Obese, no acute distress
HEENT: Normocephalic, Atraumatic, EOMI, MMM
Respiratory: Clear to Auscultation bilaterally
Cardiac: Normal S1/S2, Regular Rate and Rhythm
GI: Soft, Nontender, Nondistended, Normal Bowel Sounds
Extremities: No Clubbing, Cyanosis
Severe right lower extremity edema and tenderness
Neuro: Nonfocal/Grossly Intact
Psych: Calm, Cooperative
Anticipated Discharge: Today
Subjective/Interval History
-
Date of Service: June 15, 2024
Patient denies shortness of breath. Reports some coughing and congestion. Continues to have posterior right knee pain. No fever, no vomiting.
Objective Data
-
Labs:
Laboratory Results
06/15/24 06/15/24
03:12 11:45
WBC 8.2
Hgb 14.2
Hct 40.8
Plt Count 183
APTT 193.1 H* Pending
Vital Signs:
Vital Signs
Temp Pulse Resp BP Pulse Ox
97.8 F 66 17 137/89 95
06/15/24 08:05 06/15/24 08:00 06/15/24 08:00 06/15/24 08:00 06/15/24 09:23
I&O
06/14/24 06/15/24 06/16/24
06:59 06:59 06:59
Output Total 650 / 650
Balance -650 / -650
[2024-06-15 10:56] VITALS: BP 156/124
[2024-06-15 11:43] VITALS: BP 152/85
--- NOTE | 2024-06-15 11:58 | CM ---
CM received consult for substance use along with diaz check of Eliquis and Xarelto. Phone call to patients pharmacy ([facility]), per pharmacist, cost of Eliquis $60, cost of Xarelto $40. Patient seen bedside, initial assessment completed.
Patient resides with his and daughter in a two story home, one step to enter. Patient currently using crutches, previously independent with IADLs/ADLs. Patient denies VN/SNF. Patient confirms PCP Tian Moore, pharmacy [facility]. CM
discussed substance use consult and explained/offered BCARES, patient declining at this time. Patient agreeable to cost of Eliquis, TT to Hospitalist with update. CM will continue to follow for all discharge planning needs.
Plan; home no needs likely, agreeable to cost of medications.
[2024-06-15] MEDS: LOVENOX 100 MG SC (12:21)
--- NOTE | 2024-06-15 14:35 | W.DCSUMMARY ---
Discharge Summary
Discharge Data
Date of Admission: 06/14/24
Date of Discharge: 06/15/24
-
Pending Results: No
Hospital Course
Discharge diagnosis:
Acute bilateral pulmonary emboli
Acute right lower extremity deep vein thrombosis
Recent right tibial plateau fracture
Hyperlipidemia
Gastroesophageal reflux disease
Obesity due to excess calories
CT chest:
Examination is positive for pulmonary embolism, greater on the right, including involvement of the distal right main pulmonary artery.
No evidence for elevated right heart pressure.
Linear densities within both lungs, likely linear atelectasis. No evidence for a focal area of pulmonary infarction. There is no significant pleural effusion bilaterally.
Right lower extremity ultrasound:
Extensive DVT of the right leg excluding the right groin.
Echo:
Normal left ventricular size and systolic function. No regional wall motion
abnormalities are seen. LV ejection fraction is 65-70% by Powell's method of
discs. Mild concentric left ventricular hypertrophy. Normal diastolic function.
Normal right ventricular size. Normal right ventricular systolic function.
No mitral regurgitation is seen.
Aortic valve opens normally. No aortic stenosis. No aortic regurgitation is
seen.
Structurally normal tricuspid valve. No tricuspid regurgitation is seen. Right
heart pressures could not be determined.
Hospital course:
63-year-old male with a past medical history of gastroesophageal reflux disease, hyperlipidemia, obesity, and recent right tibial plateau fracture 4 weeks ago presented with worsening right lower extremity pain and swelling. Patient was found to
have an acute DVT of the right leg, as well as acute bilateral PE. Patient was treated with an IV heparin drip, and transitioned to therapeutic Lovenox. Echocardiogram was negative for right heart strain.
Patient was not hypoxic, he was not short of breath. He did not have chest pain. He is medically stable for discharge on Eliquis 10 mg twice a day for 7 days, then 5 mg twice a day. This is a provoked PE/DVT, he likely will need anticoagulation
for 3 months.
He needs to be nonweightbearing of the right lower extremity for 2 more weeks. He was given a prescription for outpatient physical therapy. He needs to follow-up with his primary care doctor in 1 week, and orthopedic surgery in the office as
scheduled.
Disposition: Home self-care
Discharge planning: Required 42 minutes
Discharge Plan
-
Patient Disposition: Home (Routine Discharge)
Discharge Diagnosis/Procedures: Acute right lower extremity deep vein thrombosis, bilateral pulmonary emboli, recent right tibial plateau fracture
Condition: Good
Diet: Low Fat and Low Cholesterol
Activity: As tolerated
Other Services: PT
Activity Restrictions/Additional Instructions:
Take Eliquis 10 mg twice a day for 7 days, then 5 mg twice a day.
Recommend anticoagulation/Eliquis for 3 months.
Please avoid [id number] NSAID medications, as these medications will increase your bleeding risk while taking Eliquis.
NSAID medications such as ibuprofen, naproxen, Aleve, Motrin, Advil.
Follow-up with your primary care doctor in 1 week, and your orthopedic surgeon as scheduled.
Referrals:
Tian Almaguer DO [Family Provider] - in one week
Prescriptions:
New
Eliquis 5 mg tablet
5 mg PO BID Qty: 70 0RF
Rx Instructions:
10 mg BID x 7 days then 5 mg daily
Continued
atorvastatin 10 mg Tablet
10 mg PO DAILY
omeprazole 40 mg Capsule,Delayed Release(Dr/Ec)
40 mg PO DAILY
oxycodone-acetaminophen 5-325 mg Tablet
1 tab PO Q4HPRN PRN (Reason: moderate pain)
ibuprofen 200 mg Tablet
600 mg PO DAILYPRN PRN (Reason: mild pain)
Discharge Orders:
Discharge Patient (As Directed); Ordered 06/15/24
Ordered By: Arsenio Fischer
Discharge Date and Time
Discharge Date/Time: 06/15/24 17:41
Print Language: WELSH
--- NOTE | 2024-06-15 14:51 | PTCARENOTE ---
Assumed care of pt from previous nurse. pt for dc home. non weight bearing on the rle. no noted issues with breathing or respirations. call carter is within reach, pt rings zuleika. ambulating with crutches and supervision. Will cont to monitor.
--- NOTE | 2024-06-15 16:10 | PTCARENOTE ---
IV removed, tele removed, paperwork reviewed. Pt escorted to car via w/c.
== END 2024-06-15 17:41 | disposition home or self-care (01) | DRG 299 ==
LOC: ED 22:03
PROVIDERS: Physician Assistant Medical; Registered Nurse; ADMITTING PHYSICIAN Hospitalist; ATTENDING PHYSICIAN Family Medicine; EMERGENCY PHYSICIAN Emergency Medicine; FAMILY PHYSICIAN Family Medicine
DX: I82.401 Acute embolism and thrombosis of unspecified deep veins of right lower extremity (principal); I26.99 Other pulmonary embolism without acute cor pulmonale; E78.5 Hyperlipidemia, unspecified; K21.9 Gastro-esophageal reflux disease without esophagitis; E66.09 Other obesity due to excess calories; Z68.30 Body mass index [BMI] 30.0-30.9, adult; Z79.01 Long term (current) use of anticoagulants; Z79.899 Other long term (current) drug therapy; Z87.81 Personal history of (healed) traumatic fracture
CPT/HCPCS: 71275; 80048; 80306; 82010; 82077; 82977; 83735; 83880; 84100; 84484; 85025; 85027; 85610; 85730; 93005; 93306; 96374; 99285; Q9967

== ENCOUNTER → 2024-10-03 08:29 | Outpatient (REF) | payer OTHER, SELFPAY | LOC: RAD 08:29 | PROVIDERS: FAMILY PHYSICIAN Family Medicine | DX: I82.411 Acute embolism and thrombosis of right femoral vein (principal); M79.604 Pain in right leg | CPT/HCPCS: 93926; 93970 ==

== ENCOUNTER → 2025-01-09 14:09 | Outpatient (REF) | payer OTHER, SELFPAY | LOC: RAD 14:09 | PROVIDERS: ATTENDING PHYSICIAN Nurse Practitioner Family | DX: I82.402 Acute embolism and thrombosis of unspecified deep veins of left lower extremity (principal) | CPT/HCPCS: 93971 ==